=== PATIENT | female | born 1960 | race Caucasian/White ===

== ENCOUNTER 2020-03-27 13:13 | Outpatient (CLI) | payer BC ==
--- NOTE | 2020-03-27 14:05 | ULT ---
Thyroid sonogram HISTORY: Thyroid nodules. FINDINGS: No comparison available. Right thyroid lobe measures up to 5.7 cm length with a heterogeneo us echotexture. Within the central portion is somewhat ill-defined predominantly solid heterogeneous slightly lobular hypoechoic mass that measures up to 2.6 cm length by 1.3 cm depth. Tin y cyst is present immediately superior to it. Isthmus is 0.2 cm thick. Left thyroid lobe measures up to 4.6 cm with a heterogeneous echotexture. Within the central portion is a well-circumscribed slightly lobular heterogeneous mostly isoechoic mass that measures up to 1.7 cm length by 1.0 cm depth. Tiny nodules are also present the superior pole left thyroid lobe. IMPRESSION: Dominant nodules within each thyroid lobe Right: TI RADS 4 moderately suspicious. Based on size, please consider cytologic evaluation. Left: TI RADS 3 mildly suspicious. Consider sonographic follow-up at one, 3, and 5 years.
--- NOTE | 2020-03-27 16:00 | BD ---
Exam: DEXA Bone Density 03/27/20 HISTORY: Postmenopausal screening for osteoporosis. FINDINGS: Lumbar Spine: BMD (g/cm2) T-SCORE Z-SCORE L1 0.823 -1.5 -0.2 L2 0.894 -1.2 0.3 L3 0.843 -2.2 -0.6 L4 0.720 -3.1 -1.5 L1-L4 0.820 -2.1 -0.6 Femoral Neck: 0.564 -2.6 -1.2 Total Femur: 0.765 -1.5 -0.4 Impression: Osteoporosis. POS: [facility]
== END 2020-03-27 13:14 | disposition home or self-care (01) ==
LOC: BICMAMMO 13:13
PROVIDERS: ATTEND Internal Medicine Endocrinology, Diabetes & Metabolism
DX: M81.0 Age-related osteoporosis without current pathological fracture (principal); E04.2 Nontoxic multinodular goiter
CPT/HCPCS: 76536; 77080

== ENCOUNTER 2020-07-07 10:18 | Outpatient (CLI) | payer BC ==
--- NOTE | 2020-07-07 11:39 | ULT ---
US Thyroid STANDARD History: Thyroid nodule Comparison: Thyroid ultrasound February 2020 Findings: Real-time grayscale and color evaluation of the thyroid was performed. The isthmus measures 2 mm in AP dimension. The right lobe measures 5.5 x 1.7 x 1.9 cm the left lobe m easures 4.6 x 1.5 x 1.6 cm. Similar appearance of a colloid cysts interpolar region right lobe. Next solid and cystic inferior ri ght lobe nodule is similar in size and appearance. In the interpolar region left lobe of thyroid is a 1.5 x 0.7 x 1 cm hypoechoic widened tall nodule we ll-defined margins without echogenic foci. No significant growth. There are 2 separate 7 mm hypoechoic nodules within the superior pole the left lobe which are similar without any interval growth. Impression: Similar appearance of the bilateral thyroid nodules.
== END 2020-07-07 10:19 | disposition home or self-care (01) ==
LOC: BICULT 10:18
PROVIDERS: ATTEND Internal Medicine Endocrinology, Diabetes & Metabolism
DX: E04.2 Nontoxic multinodular goiter (principal)
CPT/HCPCS: 76536

== ENCOUNTER 2020-12-25 13:39 | Outpatient (CLI) | payer BC ==
--- NOTE | 2020-12-25 14:13 | RAD ---
AP view of the pelvis INDICATION: Right and left hip pain COMPARISON: None. FINDINGS: Bones: No acute fracture or subluxation is evident. Bone mineralization appears within normal limits. Hips: Intact. SI joints and symphysis pubis: Normal appearing. Intrapelvic contents: There are small calcination involving lower pole suspicious for phleboliths. IMPRESSION: No acute osseous abnormality.
--- NOTE | 2020-12-25 14:13 | RAD ---
XR Hips Bilat 3-4 View INDICATION: Right and left hip pain COMPARISON: None FINDINGS: Bones: No acute osseous abnormality. Bone mineralization appears within normal limits. Hip joint: Radiographically normal. SI joints and symphysis pubis: Radiographically normal. Intrapelvic contents: Small scattered phleboliths Surrounding soft tissues: Radiographically normal. IMPRESSION: 1. No acute osseous abnormality.
== END 2020-12-25 13:40 | disposition home or self-care (01) ==
LOC: BICRAD 13:39
PROVIDERS: ATTEND Internal Medicine Rheumatology
DX: M25.551 Pain in right hip (principal); M25.552 Pain in left hip
CPT/HCPCS: 72170; 73522

== ENCOUNTER 2021-03-22 14:31 | Outpatient (CLI) | payer BC | END 2021-03-22 14:32 | disposition home or self-care (01) | LOC: BICMAMMO 14:31 | PROVIDERS: ATTEND Internal Medicine Endocrinology, Diabetes & Metabolism | DX: M81.0 Age-related osteoporosis without current pathological fracture (principal); E04.1 Nontoxic single thyroid nodule | CPT/HCPCS: 76536; 77080 ==

== ENCOUNTER 2021-11-01 08:24 | Outpatient (CLI) | payer BC | END 2021-11-01 08:25 | disposition home or self-care (01) | LOC: BICMAMMO 08:24 | PROVIDERS: ATTEND Family Medicine | DX: Z12.31 Encounter for screening mammogram for malignant neoplasm of breast (principal) | CPT/HCPCS: 77063; 77067 ==

== ENCOUNTER 2022-03-23 09:16 | Outpatient (CLI) | payer BC | END 2022-03-23 09:17 | disposition home or self-care (01) | LOC: BICMAMMO 09:16 | PROVIDERS: ATTEND Internal Medicine Endocrinology, Diabetes & Metabolism | DX: M81.0 Age-related osteoporosis without current pathological fracture (principal) | CPT/HCPCS: 77080 ==

== ENCOUNTER 2023-03-13 11:12 | Outpatient (CLI) | payer BC | END 2023-03-13 11:13 | disposition home or self-care (01) | LOC: BICMAMMO 11:12 | PROVIDERS: ATTEND Family Medicine | DX: Z12.31 Encounter for screening mammogram for malignant neoplasm of breast (principal) | CPT/HCPCS: 77063; 77067 ==

== ENCOUNTER 2024-03-29 09:45 | Outpatient (CLI) | payer MEDICARE | END 2024-03-29 09:46 | disposition home or self-care (01) | LOC: BICMAMMO 09:45 | PROVIDERS: ATTEND Internal Medicine Endocrinology, Diabetes & Metabolism | DX: Z12.31 Encounter for screening mammogram for malignant neoplasm of breast (principal); M81.0 Age-related osteoporosis without current pathological fracture | CPT/HCPCS: 77063; 77067; 77080 ==